=== PATIENT | female | born 1950 | race Caucasian/White ===

== ENCOUNTER 2017-01-14 06:24 | Inpatient (IN) | payer MEDICARE, OTHER ==
[~2017-01-14] VITALS: Ht 162.6 cm; Wt 66.0 kg
[~2017-01-14 06:24] MED LIST: B COTAB3 PO; TAB-TAB PO; VYTO10TA29 PO
[2017-01-15 15:23] VITALS: BP 156/84; PULSE 94; RESP 17; TEMP 97; O2SAT 95
--- NOTE | 2017-01-15 18:25 | MB ---
cc: SUMIT ROCHA MD DATE OF CONSULTATION: 01/15/2017. REASON FOR CONSULTATION: HISTORY OF PRESENT ILLNESS: This is a 66-year-old woman who was admitted to the hospital with small bowel obstruction. She was transferred from a hospital in [place], [place] where she was vacationing on a cruise. The patient had onset of severe crampy abdominal pain approximately five days ago. She was initially treated on the cruise ship and then taken to a hospital on the 13 of January. She was admitted with CT scan evidence of a significant high-grade small bowel obstruction with significant dilated small bowel and stomach. There was some ascites around the liver and in the pelvis. She was treated with nasogastric suction and IV fluids and had significant improvement within 24 hours with cessation of abdominal pain and decreased abdominal distention and resolution of abdominal tenderness. She did not have resumption of gas or stool. The patient has had previous abdominal surgery. In 2010, she has a perforation of the sigmoid colon. She has had significant diarrhea problems for most of her life and she is concerned that she may have had an inflammatory bowel disease. She underwent an emergency sigmoid resection for perforation at [facility]. She underwent a sigmoid colostomy with Julia closure of the rectum. Dr. Agatha Aj reversed her colostomy in 2011. She has had colonoscopy since that had not shown any inflammatory bowel disease. She continues to have chronic diarrhea. She states she has had one or two other episodes of small bowel obstruction within the past two years and those episodes have resolved spontaneously. PAST MEDICAL HISTORY: The patient has no other significant medical problems. She does have a history of breast cancer is currently taking a hormone blocking agent. ALLERGIES: She denies allergies. MEDICATIONS: She currently takes Losartan for hypertension. PHYSICAL EXAMINATION: GENERAL: On exam she is alert without distress. VITAL SIGNS: Vital signs are normal. Respirations are normal. SKIN: Skin is warm and dry. ABDOMEN: Her abdomen is soft and nontender without distension. RECTAL: Exam was not performed. NEUROLOGICAL EXAMINATION: Grossly normal. LABORATORY DATA: Laboratories are pending. ASSESSMENT: High-grade small bowel obstruction with significant improvement with conservative treatment while in [place]. The patient was transferred by air ambulance with an NG tube in place. PLAN: The patient will be treated with continued NG suction and IV fluids with follow up abdominal x-ray. MD JAZ Cristobal/GATO /5:56 PM /6:09 PM ROMÁN
[2017-01-15] MEDS ORDERED: ONDANSETRON HCL 4 MG/2 ML VIAL IV PUSH PRN (19:15)
[2017-01-15 20:01] VITALS: BP 135/93; PULSE 80; RESP 17; TEMP 97.4; O2SAT 95
[2017-01-15] MEDS: D5-LR + KCL 20 MEQ INJ 1,000 ML IV SCH (21:34)
[2017-01-15 21:39] LABS: AUTOMATED NEUTROPHIL # 4.9 TH/MM3 (1.8-7.7); BASOPHIL % 0.4 % (0.0-2.0); EOSINOPHIL # 0.2 TH/MM3 (0-0.4); HEMO FLAGS DIFF FINAL; LYMPH % 18.7 % (9.0-44.0); LYMPHOCYTE # 1.3 TH/MM3 (1.0-4.8); MEAN CELL VOLUME 94.8 FL (80.0-100.0); MEAN CORPUSCULAR HEMOGLOBIN 33.1 PG (27.0-34.0); MEAN CORPUSCULAR HGB CONC 34.9 % (32.0-36.0); MONO % 5.4 % (0.0-8.0); NEUT % 72.5 % (16.0-70.0); PLATELET COUNT 211 TH/MM3 (150-450); WHITE BLOOD COUNT 6.8 TH/MM3 (4.0-11.0)
[2017-01-15 21:55] LABS: ANION GAP 9 MEQ/L (5-15); AST (GOT) 16 U/L (15-37); BICARBONATE 30.5 MEQ/L (21.0-32.0); BLOOD UREA NITROGEN 8 MG/DL (7-18); CHLORIDE 101 MEQ/L (98-107); GLOMERULAR FILTRATION RATE 80 ML/MIN (>89); POTASSIUM 3.2 MEQ/L (3.5-5.1); SODIUM (NA) 140 MEQ/L (136-145)
[2017-01-15 21:56] LABS: ALT (GPT) 17 U/L (10-53)
[2017-01-15 21:58] LABS: ALKALINE PHOSPHATASE 47 U/L (45-117); TOTAL BILIRUBIN ADULT 0.4 MG/DL (0.2-1.0)
[2017-01-15] MEDS: LORazepam 2 MG/ML VIAL IV PRN (22:02)
[2017-01-15 22:46] LABS: BACTERIA, URINE FEW /hpf; BLOOD, URINE SMALL (NEG); COMMENT (UR) CULTURE INDICATED; CULTURE IF INDICATED CULTURE INDICATED; GLUCOSE,URINE NEG (NEG); KETONE, URINE 80 mg/dL (NEG); MUCUS URINE FEW /lpf (OCC); NITRITE,URINE NEG (NEG); PH, URINE 6.5 (5.0-8.5); SQUAMOUS EPITHELIAL CELL URINE 38 /hpf (0-5); TRANSITIONAL EPI CELLS, URINE 1 /hpf; URINE COLOR YELLOW (YELLW/STRAW)
--- NOTE | 2017-01-15 23:44 | RADRPT ---
EXAM DATE/TIME: 01/15/2017 23:17 [facility] COMPARISON: No previous studies available for comparison. INDICATIONS : NG tube placement. MEDICAL HISTORY : None. SURGICAL HISTORY : None. ENCOUNTER: Initial ACUITY: 1 day PAIN SCORE: 0/10 LOCATION: abdomen FINDINGS: Nasogastric tube is identified and the distal tip overlies the expected location of the distal stomac h. Dilated loop of small bowel overlies mid abdomen. CONCLUSION: NG tube as above. Dilated small bowel. Ashkan Bravo MD on January 15, 2017 at 23:43 Board Certified Radiologist. This report was verified electronically.
[2017-01-15 23:48] VITALS: BP 130/83; PULSE 70; RESP 17; TEMP 96.7; O2SAT 97
--- NOTE | 2017-01-16 00:32 | HHI.HP ---
[facility] Service [facility] Primary Care Physician Jose Castaneda M.D. Admission Diagnosis Diagnoses: Travel History International Travel<30 Days: Yes Contact w/Intl Traveler <30 Da: Yes Name of Country Traveled to: [place] and [employer] Traveled to Known Affected Are: No History of Present Illness 66-year-old female with a past medical history significant for unspecified IBD, breast cancer, hypertension and hyperlipidemia presents with a small bowel obstruction. The patient was on a cruise when she developed abdominal pain and bloating on Tuesday. She has a history of previous small bowel obstruction 2 and multiple abdominal surgeries and states her symptoms were the same as previous. She was treated with pain control on her cruise ship and left the cruise on 01/13 where she was treated in [place]. The patient was transferred to [facility] [place] for further treatment of her small bowel obstruction. She denies any pain at this time. Had one episode of flatus tonight. Patient had a CT scan which showed a significant high-grade small bowel obstruction with dilated small bowel and stomach. She was treated with NG suction and IV fluids and has had significant improvement of her symptoms over the past 48 hours. Review of Systems Denies fever or chills Denies blurry vision, otorrhea, rhinorrhea Denies sore throat and cough No chest pain, palpitations, shortness of breath No abdominal pain Denies constipation/diarrhea/nausea/vomiting Denies muscle pain/weakness No rashes Past Family Social History Past Medical History Unspecified IPD Breast cancer, status post lumpectomy and radiation treatment this year Hypertension Hyperlipidemia Past Surgical History Partial colectomy with colostomy for IBD Ostomy takedown Hernia repair Appendectomy Tonsillectomy Right ankle surgery BTL Lumpectomy Reported Medications Reported Meds & Active Scripts Active Reported B Complex (Vitamin B Complex) Tab 1 Cap PO DAILY Multivitamin (Multivitamins) 1 Tab Tab 1 Tab PO DAILY Vytorin 10/10 (Ezetimibe/Simvastatin) 10 Mg-10 Mg Tab 1 Tab PO DAILY Allergies: Coded Allergies: No Known Allergies (Unverified , 02/23/11) Family History No family history of coronary artery disease or diabetes mellitus Social History Quit tobacco 17 years ago. Drinks 6 ounces of alcohol per night. Denies illicit drugs. Physical Exam Vital Signs Vital Signs Date Time Temp Pulse Resp B/P (MAP) Pulse Ox O2 Delivery O2 Flow Rate FiO2 01/15/17 23:48 96.7 70 17 130/83 (99) 97 01/15/17 20:01 97.4 80 17 135/93 (107) 95 01/15/17 15:23 97.0 94 17 156/84 (108) 95 Physical Exam GENERAL: female lying in bed SKIN: No rashes, ecchymoses or lesions. Cool and dry. HEAD: Atraumatic. Normocephalic. No temporal or scalp tenderness. EYES: Pupils equal round and reactive. Extraocular motions intact. No scleral icterus. No injection or drainage. ENT: Nose without bleeding, purulent drainage or septal hematoma. Throat without erythema, tonsillar hypertrophy or exudate. Uvula midline. Airway patent. NECK: Trachea midline. No JVD or lymphadenopathy. Supple, nontender, no meningeal signs. CARDIOVASCULAR: Regular rate and rhythm without murmurs, gallops, or rubs. RESPIRATORY: Clear to auscultation. Breath sounds equal bilaterally. No wheezes , rales, or rhonchi. GASTROINTESTINAL: Abdomen soft, non-tender, nondistended. No hepato-splenomegaly , or palpable masses. No guarding. Active bowel sounds. MUSCULOSKELETAL: Extremities without clubbing, cyanosis, or edema. No joint tenderness, effusion, or edema noted. No calf tenderness. NEUROLOGICAL: Awake and alert. Cranial nerves II through XII intact. Motor and sensory grossly within normal limits. Normal speech. Laboratory Laboratory Tests Test 01/15/17 21:12 01/15/17 22:25 White Blood Count 6.8 Red Blood Count 3.70 Hemoglobin 12.2 Hematocrit 35.0 Mean Corpuscular Volume 94.8 Mean Corpuscular Hemoglobin 33.1 Mean Corpuscular Hemoglobin Concent 34.9 Red Cell Distribution Width 13.0 Platelet Count 211 Mean Platelet Volume 8.0 Neutrophils (%) (Auto) 72.5 Lymphocytes (%) (Auto) 18.7 Monocytes (%) (Auto) 5.4 Eosinophils (%) (Auto) 3.0 Basophils (%) (Auto) 0.4 Neutrophils # (Auto) 4.9 Lymphocytes # (Auto) 1.3 Monocytes # (Auto) 0.4 Eosinophils # (Auto) 0.2 Basophils # (Auto) 0.0 CBC Comment DIFF FINAL Differential Comment Blood Urea Nitrogen 8 Creatinine 0.73 Random Glucose 91 Total Protein 7.3 Albumin 3.6 Calcium Level 9.1 Alkaline Phosphatase 47 Aspartate Amino Transf (AST/SGOT) 16 Alanine Aminotransferase (ALT/SGPT) 17 Total Bilirubin 0.4 Sodium Level 140 Potassium Level 3.2 Chloride Level 101 Carbon Dioxide Level 30.5 Anion Gap 9 Estimat Glomerular Filtration Rate 80 Urine Color YELLOW Urine Turbidity HAZY Urine pH 6.5 Urine Specific Everest 1.023 Urine Protein 30 Urine Glucose (UA) NEG Urine Ketones 80 Urine Occult Blood SMALL Urine Nitrite NEG Urine Bilirubin NEG Urine Urobilinogen 2.0 Urine Leukocyte Esterase LARGE Urine RBC 10 Urine WBC 22 Urine Squamous Epithelial Cells 38 Urine Transitional Epithelial Cells 1 Urine Bacteria FEW Urine Mucus FEW Microscopic Urinalysis Comment CULTURE INDICATED Date/Time Source Procedure Growth Status 01/15/17 22:25 Urine Random Urine Urine Culture Pending Received Result Diagram: 01/15/17211101/15/172111 Caprini VTE Risk Assessment Caprini VTE Risk Assessment: Mod/High Risk (score >= 2) Caprini Risk Assessment Model Point Value = 1 Point Value = 2 Point Value = 3 Point Value = 5 Age 41-60 Minor surgery BMI > 25 kg/m2 Swollen legs Varicose veins or History of unexplained or recurrent spontaneous Oral contraceptives or hormone replacement Sepsis (< 1 month) Serious lung disease, including pneumonia (< 1 month) Abnormal pulmonary function Acute myocardial infarction Congestive heart failure (< 1 month) History of inflammatory bowel disease Medical patient at bed rest Age 61-74 Arthroscopic surgery Major open surgery (> 45 min) Laparoscopic surgery (> 45 min) Malignancy Confined to bed (> 72 hours) Immobilizing plaster cast Central venous access Age >= 75 History of VTE Family history of VTE Factor V Leiden Prothrombin [id number] Lupus anticoagulant Anticardiolipin antibodies Elevated serum homocysteine Heparin-induced thrombocytopenia Other congenital or acquired thrombophilia Stroke (< 1 month) Elective arthroplasty Hip, pelvis, or leg fracture Acute spinal cord injury (< 1 month) Prophylaxis Regimen Total Risk Factor Score Risk Level Prophylaxis Regimen 0-1 Low Early ambulation 2 Moderate Order ONE of the following: *Sequential Compression Device (SCD) *Heparin 5000 units SQ BID 3-4 Higher Order ONE of the following medications: *Heparin 5000 units SQ TID *Enoxaparin/Lovenox 40 mg SQ daily (WT < 150 kg, CrCl > 30 mL/min) *Enoxaparin/Lovenox 30 mg SQ daily (WT < 150 kg, CrCl > 10-29 mL/min) *Enoxaparin/Lovenox 30 mg SQ BID (WT < 150 kg, CrCl > 30 mL/min) AND/OR *Sequential Compression Device (SCD) 5 or more Highest Order ONE of the following medications: *Heparin 5000 units SQ TID (Preferred with Epidurals) *Enoxaparin/Lovenox 40 mg SQ daily (WT < 150 kg, CrCl > 30 mL/min) *Enoxaparin/Lovenox 30 mg SQ daily (WT < 150 kg, CrCl > 10-29 mL/min) *Enoxaparin/Lovenox 30 mg SQ BID (WT < 150 kg, CrCl > 30 mL/min) AND *Sequential Compression Device (SCD) Assessment and Plan Assessment and Plan Assessment/plan: 1. High-grade small bowel obstruction Abdominal x-ray with dilated small bowel, images reviewed by me Colorectal surgery recommends medical management, appreciate assistance NG tube to low intermittent wall suction Nothing by mouth Repeat abdominal x-ray in the morning 2. Hypertension/hyperlipidemia Holding home medications as patient nothing by mouth 3. IBD Patient does not take any home medications 4. Hypokalemia Supplement with IV potassium Follow-up BMP FEN NPO D5 1/2 NS + 20 KCl SCDs Physician Certification 2 Midnight Certification Type: Admission for Inpatient Services Order for Inpatient Services The services are ordered in accordance with Medicare regulations or non- Medicare payer requirements, as applicable. In the case of services not specified as inpatient-only, they are appropriately provided as inpatient services in accordance with the 2-midnight benchmark. Estimated LOS (days): 2 2 days is the estimated time the patient will need to remain in the hospital, assuming treatment plan goals are met and no additional complications. Post-Hospital Plan: Not yet determined Ximena Rebolledo MD Jan 16, 2017 00:32
[2017-01-16] MEDS: POTASSIUM CHLOR 10 MEQ PREMIX 100 ML IV SCH ×4 (01:00→05:48)
--- NOTE | 2017-01-16 06:20 | RADRPT ---
EXAM DATE/TIME: 01/16/2017 06:04 [facility] COMPARISON: ABDOMEN SINGLE VIEW, January 15, 2017, 23:17. INDICATIONS : Obstruction. MEDICAL HISTORY : None. SURGICAL HISTORY : None. ENCOUNTER: Initial ACUITY: 1 day PAIN SCORE: 0/10 LOCATION: abdomen FINDINGS: There are dilated loops of small bowel seen with multiple thickening overlying the midabdomen, measur ing up to 5 cm. There surgical clips in the right lower quadrant. There is dense stool in the ascendi ng colon. NG tube is present in satisfactory position. CONCLUSION: Dilated small bowel loops would suggest at least partial small bowel obstruction given the degree of distention. Ashkan Bravo MD on January 16, 2017 at 6:18 Board Certified Radiologist. This report was verified electronically.
[2017-01-16 08:00] VITALS: BP 139/83; PULSE 80; RESP 16; TEMP 97.8; O2SAT 94
[2017-01-16 08:49] LABS: BICARBONATE 29.4 MEQ/L (21.0-32.0); POTASSIUM 3.9 MEQ/L (3.5-5.1)
[2017-01-16] MEDS: D5-LR + KCL 20 MEQ INJ 1,000 ML IV SCH ×2 (09:55→17:01)
[2017-01-16] MEDS: LOSARTAN 25 MG TAB PO SCH (09:55)
[2017-01-16 12:00] VITALS: BP 147/90; PULSE 77; RESP 17; TEMP 96.7; O2SAT 96
[2017-01-16] MEDS ORDERED: ANAS1TAB PO (12:03)
[2017-01-16] MEDS ORDERED: ROSU1TAB6 PO (12:03)
[2017-01-16] MEDS: SULFAMETHOXAZOLE-TRIMETHOPRIM 800-160 MG/20 ML UDC PO SCH ×2 (13:20→23:25)
[2017-01-16 16:00] VITALS: BP 115/64; PULSE 96; RESP 18; TEMP 98.3; O2SAT 98
[2017-01-16 20:14] VITALS: BP 115/73; PULSE 79; RESP 18; TEMP 98.7; O2SAT 97
[2017-01-16] MEDS: LORazepam 2 MG/ML VIAL IV PRN (20:42)
[2017-01-17 00:20] VITALS: BP 122/85; PULSE 72; RESP 18; TEMP 96.8; O2SAT 94
[2017-01-17] MEDS: D5-LR + KCL 20 MEQ INJ 1,000 ML IV SCH ×2 (05:43→17:58)
[2017-01-17 08:00] VITALS: BP 120/78; PULSE 74; RESP 16; TEMP 98; O2SAT 93
[2017-01-17] MEDS: LOSARTAN 25 MG TAB PO SCH (10:09)
[2017-01-17 12:00] VITALS: BP 141/83; PULSE 85; RESP 18; TEMP 97.9; O2SAT 93
--- NOTE | 2017-01-17 12:55 | HHI.PR ---
Subjective Remarks Resolving SBO more comfortable, less bloated, small amount of flatus Objective Vital Signs Date Time Temp Pulse Resp B/P (MAP) Pulse Ox O2 Delivery O2 Flow Rate FiO2 01/17/17 12:00 97.9 85 18 141/83 (102) 93 01/17/17 08:00 98.0 74 16 120/78 (92) 93 01/17/17 00:20 96.8 72 18 122/85 (97) 94 01/16/17 20:14 98.7 79 18 115/73 (87) 97 01/16/17 16:00 98.3 96 18 115/64 (81) 98 I/O 01/16/17 01/16/17 01/16/17 01/17/17 01/17/17 01/17/17 07:00 15:00 23:00 07:00 15:00 23:00 Intake Total 200 ml 100 ml 960 ml 1760 ml Output Total 900 ml 1750 ml Balance -700 ml 100 ml -790 ml 1760 ml Intake Oral 960 ml 760 ml IV Total 200 ml 100 ml 1000 ml Output Urine Total 700 ml 1000 ml Gastric Drainage Total 200 ml 750 ml # Voids 4 # Bowel Movements 0 Result Diagram: 01/15/17211101/16/17 0714 Objective Remarks Abdomen soft, nondistended, nontender Assessment and Plan Assessment and Plan Try low residue diet Possible suppository in am Agatha Aj MD Jan 17, 2017 12:55
[2017-01-17] MEDS: SULFAMETHOXAZOLE-TRIMETHOPRIM 800-160 MG/20 ML UDC PO SCH (13:33)
[2017-01-17 16:00] VITALS: BP 140/77; PULSE 79; RESP 16; TEMP 97.7; O2SAT 94
[2017-01-17 20:00] VITALS: BP 135/81; PULSE 82; RESP 16; TEMP 98.7; O2SAT 96
[2017-01-17] MEDS: LORazepam 2 MG/ML VIAL IV PRN (21:32)
[2017-01-18] VITALS: BP 121/75; PULSE 75; RESP 16; TEMP 98.4; O2SAT 96
[2017-01-18] MEDS: SULFAMETHOXAZOLE-TRIMETHOPRIM 800-160 MG/20 ML UDC PO SCH ×3 (00:35→13:19)
[2017-01-18] MEDS: D5-LR + KCL 20 MEQ INJ 1,000 ML IV SCH ×3 (05:10→19:46)
[2017-01-18 08:20] VITALS: BP 129/77; PULSE 78; RESP 16; TEMP 97.3; O2SAT 95
[2017-01-18] MEDS: LOSARTAN 25 MG TAB PO SCH (08:47)
[2017-01-18 12:00] VITALS: BP 147/82; PULSE 85; RESP 16; TEMP 97.8; O2SAT 94
--- NOTE | 2017-01-18 14:09 | HHI.PR ---
Subjective Remarks Resolving SBO lots of cramping overnight passing flatus but no stool Objective Vital Signs Date Time Temp Pulse Resp B/P (MAP) Pulse Ox O2 Delivery O2 Flow Rate FiO2 01/18/17 12:00 97.8 85 16 147/82 (103) 94 01/18/17 08:20 97.3 78 16 129/77 (94) 95 01/18/17 00:00 98.4 75 16 121/75 (90) 96 01/17/17 20:00 98.7 82 16 135/81 (99) 96 01/17/17 16:00 97.7 79 16 140/77 (98) 94 I/O 01/17/17 01/17/17 01/17/17 01/18/17 01/18/17 01/18/17 07:00 15:00 23:00 07:00 15:00 23:00 Intake Total 1760 ml 580 ml 1000 ml Balance 1760 ml 580 ml 1000 ml Intake Oral 760 ml 580 ml IV Total 1000 ml 1000 ml # Voids 4 5 2 # Bowel Movements 0 Result Diagram: 01/15/17211101/16/17 0714 Objective Remarks Abdomen soft, moderate distension, nontender Assessment and Plan Assessment and Plan Try suppository KUB in am If no improvement, may need exjerricap Agatha Aj MD Jan 18, 2017 14:08
[2017-01-18] MEDS ORDERED: BISACODYL 10 MG SUPP RECTAL PRN (14:15)
[2017-01-18] MEDS ORDERED: traMADol HCL 50 MG TAB PO PRN (14:15)
[2017-01-18 16:00] VITALS: BP 141/76; PULSE 85; RESP 16; TEMP 98.7; O2SAT 94
[2017-01-18 20:00] VITALS: BP 140/79; PULSE 80; RESP 16; TEMP 98.3; O2SAT 95
[2017-01-18] MEDS: LORazepam 2 MG/ML VIAL IV PRN (20:53)
[2017-01-19] VITALS: BP 121/67; PULSE 80; RESP 16; TEMP 97.1; O2SAT 96
[2017-01-19] MEDS: SULFAMETHOXAZOLE-TRIMETHOPRIM 800-160 MG/20 ML UDC PO SCH (01:19)
--- NOTE | 2017-01-19 05:47 | RADRPT ---
EXAM DATE/TIME: 01/19/2017 05:10 [facility] COMPARISON: No previous studies available for comparison. INDICATIONS : Distention. MEDICAL HISTORY : Hypertension. Carcinoma, breast. Hyperlipidemia. SURGICAL HISTORY : Appendectomy. Hernia repair. Partial colectomy with colostomy. Lumpectomy. ENCOUNTER: Subsequent ACUITY: 4 - 6 days PAIN SCORE: Non-responsive. LOCATION: abdomen, all quadrants. FINDINGS: No dilated loops of small or large bowel. Visualized left lung is clear. Faint contrast in the righ t colon. No suspicious calcifications. Multiple metallic patient weight 70 pelvis from presumed her fernando repair. Moderate degenerative changes in lower lumbar spine and both hips. CONCLUSION: No dilated loops of small or large bowel. Nura Smith MD on January 19, 2017 at 5:44 Board Certified Radiologist. This report was verified electronically.
[2017-01-19 08:00] VITALS: BP 116/62; PULSE 75; RESP 16; TEMP 97.1; O2SAT 93
--- NOTE | 2017-01-19 08:22 | HHI.PR ---
Subjective Remarks Resolving SBO No stool, but some flatus Feels well, no bloating Objective Vital Signs Date Time Temp Pulse Resp B/P (MAP) Pulse Ox O2 Delivery O2 Flow Rate FiO2 01/19/17 00:00 97.1 80 16 121/67 (85) 96 01/18/17 20:00 98.3 80 16 140/79 (99) 95 01/18/17 16:00 98.7 85 16 141/76 (97) 94 01/18/17 12:00 97.8 85 16 147/82 (103) 94 I/O 01/18/17 01/18/17 01/18/17 01/19/17 01/19/17 01/19/17 07:00 15:00 23:00 07:00 15:00 23:00 Intake Total 1000 ml 2716 ml Balance 1000 ml 2716 ml Intake Oral 720 ml IV Total 1000 ml 1996 ml # Voids 2 4 1 # Bowel Movements 0 Result Diagram: 01/15/17 21101/16/17 0714 Objective Remarks Abdomen soft, no distension, nontender Assessment and Plan Assessment and Plan KUB without dilated bowel OK for discharge Light diet, continue suppository and MiraLax Followup with me next week Agatha Aj MD Jan 19, 2017 08:22
[2017-01-19] MEDS ORDERED: BISA10R RECTAL (08:24)
--- NOTE | 2017-01-19 09:04 | MD ---
cc: AGATHA AJ M.D. ADMISSION DATE: 01/15/2017 DISCHARGE DATE: 01/19/2017 [place] Visit Search.Discharge Date ADMISSION DIAGNOSIS Small bowel obstruction. DISCHARGE DIAGNOSIS Small bowel obstruction. PROCEDURE None. BRIEF HISTORY/HOSPITAL COURSE The patient is a 66-year-old lady who is several years out from a robotic colonic resection who was actually in [place] when she began having symptoms of bowel obstruction. She was eventually transferred back to [place] by [facility]. She was treated nonoperatively with gradual resolution of her symptoms and x-ray on the day of discharge shows no sign of dilated small or large bowel. I will see her in the office one week from discharge. Agatha Aj MD KW/BT /8:26 AM /8:42 AM
[2017-01-19] MEDS: LOSARTAN 25 MG TAB PO SCH (09:09)
== END 2017-01-19 10:52 | disposition home or self-care (01) | DRG 389 ==
LOC: N07B 01-15 18:23
PROVIDERS: ADMIT Colon & Rectal Surgery; ATTEND Colon & Rectal Surgery
DX: K56.609 Unspecified intestinal obstruction, unspecified as to partial versus complete obstruction (principal); R18.8 Other ascites; I10 Essential (primary) hypertension; E87.6 Hypokalemia; Z85.3 Personal history of malignant neoplasm of breast; Z92.3 Personal history of irradiation; E78.5 Hyperlipidemia, unspecified; Z87.891 Personal history of nicotine dependence
CPT/HCPCS: 74000; 74020; 80048; 80053; 81001; 85025; 87086; J2060; J2405; J3480

== ENCOUNTER 2017-01-22 02:08 | Inpatient (IN) | payer MEDICARE, OTHER ==
[~2017-01-22] VITALS: Ht 162.6 cm; Wt 65.5 kg
[2017-01-22] VITALS (9 sets, daily range): BP systolic 124–191; BP diastolic 71–92; PULSE 80–112; RESP 16–20; TEMP 96.3–98.4; O2SAT 96–99
[~2017-01-22 02:08] MED LIST changes: +ANAS1TAB PO; -B COTAB3 PO; +BISA10R RECTAL; +ROSU1TAB6 PO; -TAB-TAB PO
[2017-01-22] MEDS ORDERED: LOSA25TA PO (02:29)
[2017-01-22] MEDS ORDERED: SODIUM CHLOR 0.9% 1000 ML INJ 1,000 ML IV SCH (02:34)
--- NOTE | 2017-01-22 02:43 | PD ---
HPI Chief Complaint: Abdominal Pain Time Seen by Provider: 02:34 Travel History International Travel<30 days: No Contact w/Intl Traveler<30days: No Traveled to known affect area: No History of Present Illness HPI 66-year-old female presents to the emergency department by private transportation for complaint of abdominal pain abdominal distention and possible recurrent bowel obstruction. According the patient she was just released from the hospital after a 12 day stay on Tuesday evening for a recurrent bowel obstruction. Patient was managed conservatively with NG tube and fluid hydration. Patient was discharged on a soft diet and MiraLAX. Patient states she had a large bowel movement was last evacuation of stool and intestinal contents on evening but has not had a bowel movement or flatus since that time. Patient today noted some abdominal cramping but continued to follow the outpatient recommendations of fluid hydration and soft diet. This evening patient's continued to notice abdominal distention. Upon arrival to the emergency department she vomited multiple times stomach contents. No report of melena hematochezia or coffee-ground emesis. Patient has had previous partial colectomy with colostomy and colostomy revision in the past as well as herniorrhaphy. Patient has had 3 bowel obstructions in the past 2 years. Patient is under the care of colorectal surgeon Dr. Aj. Patient denies fever or chills. Patient reports since having episode of vomiting in the emergency department her discomfort is a 2-3/10 in intensity. Patient denies other concerns or complaints. PFSH Past Medical History Narrative Medical Arthritis hypertension dyslipidemia breast cancer with lumpectomy and radiation treatment chronic bowel syndrome/possible inflammatory bowel disease partial colectomy with colostomy(2010 sigmoid perforation) and colostomy revision bowel obstruction hypothyroidism appendectomy; occasional alcohol use; nursing notes reviewed Arthritis: Yes Blood Disorders: No Anxiety: Yes Cancer: Yes (breast (right)) Cardiovascular Problems: Yes High Cholesterol: Yes Endocrine: Yes Gastrointestinal Disorders: No GERD: Yes Genitourinary: No Hiatal Hernia: Yes (repaired) Hypertension: Yes Immune Disorder: No Implanted Vascular Access Dvce: No Musculoskeletal: Yes Neurologic: No Psychiatric: No Reproductive: No Respiratory: No Immunizations Current: Yes Radiation Therapy: Yes (finished 06/18/16) Thyroid Disease: Yes (treated for a thyroid lump) Tetanus Vaccination: Unknown Influenza Vaccination: No Past Surgical History Abdominal Surgery: Yes (appenectomy) Body Medical Devices: hardware right ankle Genitourinary Surgery: Yes (colostomy, hernia) Gynecologic Surgery: Yes (R lumpectomy, tubal ligation) Oral Surgery: Yes (tonsillectomy) Pacemaker: No Other Surgery: Yes (obstruction this past week) Social History Alcohol Use: Yes (occ) Tobacco Use: No Substance Use: No Allergies-Medications (Allergen,Severity, Reaction): Coded Allergies: No Known Allergies (Unverified Adverse Reaction, Unknown, 01/22/17) Reported Meds & Prescriptions Reported Meds & Active Scripts Active Reported Losartan (Losartan Potassium) 25 Mg Tab 25 Mg PO DAILY Rosuvastatin (Rosuvastatin Calcium) 10 Mg Tab 10 Mg PO HS Anastrozole 1 Mg Tab 1 Mg PO DAILY Review of Systems Except as stated in HPI: all other systems reviewed are Neg Physical Exam Narrative GENERAL: Well-developed well-nourished female in no acute distress no respiratory distress SKIN: Warm and dry. HEAD: Normocephalic. EYES: No scleral icterus. No injection or drainage. NECK: Supple, trachea midline. No JVD or lymphadenopathy. CARDIOVASCULAR: Increased Regular rate and rhythm without murmurs, gallops, or rubs. RESPIRATORY: Breath sounds equal bilaterally. No accessory muscle use. GASTROINTESTINAL: Abdomen soft, non-tender, nondistended. Decreased bowel sounds no guarding or rebound. MUSCULOSKELETAL: No cyanosis, or edema. BACK: Nontender without obvious deformity. No CVA tenderness. Data Data Last Documented VS Vital Signs Date Time Temp Pulse Resp B/P (MAP) Pulse Ox O2 Delivery O2 Flow Rate FiO2 01/22/17 03:09 93 16 191/79 (116) 98 Room Air 01/22/17 02:11 98.2 Orders Orders Complete Blood Count With Diff (01/22/17 02:34) Comprehensive Metabolic Panel (01/22/17 02:34) Lipase (01/22/17 02:34) Urinalysis - C+S If Indicated (01/22/17 02:34) Iv Access Insert/Monitor (01/22/17 02:34) Ecg Monitoring (01/22/17 02:34) Oximetry (01/22/17 02:34) Ondansetron Inj (Zofran Inj) (01/22/17 02:45) Sodium Chlor 0.9% 1000 Ml Inj (Ns 1000 M (01/22/17 02:34) Sodium Chloride 0.9% Flush (Ns Flush) (01/22/17 02:45) Abdomen, Upright Only (01/22/17 02:34) Morphine Inj (Morphine Inj) (01/22/17 03:15) Urine Culture (01/22/17 04:10) Ng Gastric Tube Insert/Monitor (01/22/17 04:52) Place Ng Tube To Low Intermit (01/22/17 04:52) Admit Order (Ed Use Only) (01/22/17 ) Dining Service Supervisor / Telemetry [id number] (01/22/17 04:53) Diet Npo (01/22/17 Breakfast) Activity Oob With Assistance (01/22/17 04:53) Notify Dr: Other (01/22/17 04:53) Labs Laboratory Tests Test 01/22/17 02:51 01/22/17 04:10 White Blood Count 10.6 TH/MM3 Red Blood Count 4.69 MIL/MM3 Hemoglobin 15.8 GM/DL Hematocrit 44.7 % Mean Corpuscular Volume 95.4 FL Mean Corpuscular Hemoglobin 33.8 PG Mean Corpuscular Hemoglobin Concent 35.4 % Red Cell Distribution Width 13.0 % Platelet Count 446 TH/MM3 Mean Platelet Volume 8.2 FL Neutrophils (%) (Auto) 74.1 % Lymphocytes (%) (Auto) 17.3 % Monocytes (%) (Auto) 6.1 % Eosinophils (%) (Auto) 1.9 % Basophils (%) (Auto) 0.6 % Neutrophils # (Auto) 7.8 TH/MM3 Lymphocytes # (Auto) 1.8 TH/MM3 Monocytes # (Auto) 0.6 TH/MM3 Eosinophils # (Auto) 0.2 TH/MM3 Basophils # (Auto) 0.1 TH/MM3 CBC Comment DIFF FINAL Differential Comment Blood Urea Nitrogen 23 MG/DL Creatinine 1.21 MG/DL Random Glucose 133 MG/DL Total Protein 9.1 GM/DL Albumin 4.8 GM/DL Calcium Level 10.8 MG/DL Alkaline Phosphatase 69 U/L Aspartate Amino Transf (AST/SGOT) 69 U/L Alanine Aminotransferase (ALT/SGPT) 61 U/L Total Bilirubin 0.4 MG/DL Sodium Level 134 MEQ/L Potassium Level 4.4 MEQ/L Chloride Level 99 MEQ/L Carbon Dioxide Level 27.3 MEQ/L Anion Gap 8 MEQ/L Estimat Glomerular Filtration Rate 45 ML/MIN Lipase 442 U/L Urine Color YELLOW Urine Turbidity HAZY Urine pH 5.0 Urine Specific [place] 1.018 Urine Protein 30 mg/dL Urine Glucose (UA) NEG mg/dL Urine Ketones TRACE mg/dL Urine Occult Blood TRACE Urine Nitrite NEG Urine Bilirubin NEG Urine Urobilinogen LESS THAN 2.0 MG/DL Urine Leukocyte Esterase LARGE Urine RBC 21 /hpf Urine WBC 13 /hpf Urine Squamous Epithelial Cells 5 /hpf Urine Bacteria RARE /hpf Urine Hyaline Casts 32 /lpf Urine Mucus FEW /lpf Microscopic Urinalysis Comment CULTURE INDICATED MDM Medical Decision Making Medical Screen Exam Complete: Yes Emergency Medical Condition: Yes Medical Record Reviewed: Yes Interpretation(s) Last Impressions Abdomen X-Ray 01/22/17 0234 Signed Impressions: Service Date/Time: Sunday, January 22, 2017 02:46 - CONCLUSION: Mildly distended mid abdomen small bowel loop. Air-filled distention of small bowel has decreased when compared to the prior study of 01/16/2017. Jorge Luis Kaur MD CBC & BMP Diagram 01/22/17 02:51 Total Protein 9.1 #H, Albumin 4.8, Calcium Level 10.8 H, Alkaline Phosphatase 69 , Aspartate Amino Transf (AST/SGOT) 69 H, Alanine Aminotransferase (ALT/SGPT) 61 H, Total Bilirubin 0.4 Vital Signs Date Time Temp Pulse Resp B/P (MAP) Pulse Ox O2 Delivery O2 Flow Rate FiO2 01/22/17 03:09 93 16 191/79 (116) 98 Room Air 01/22/17 02:11 98.2 112 20 132/82 (99) 97 Room Air Differential Diagnosis Recurrent bowel obstruction, ileus, diverticulitis, colitis, electrolyte disturbance, dehydration, UTI Narrative Course Patient placed on fly maker IV access obtained administered 1 L normal saline and Zofran 4 mg IV imaging study ordered along with basic labs. Medical record reviewed Sepsis Criteria SIRS Criteria (2 or more): Heart rate over 90 Physician Communication Physician Communication discussed with DR Aj --admit to her service npo /ngt Diagnosis Primary Impression: Partial small bowel obstruction Additional Impressions: Elevated lipase UTI (urinary tract infection) Admitting Information Admitting Physician Requests: Admit Ree Knutson MD Jan 22, 2017 02:43
[2017-01-22] MEDS ORDERED: ONDANSETRON HCL 4 MG/2 ML VIAL IVP ONE (02:45)
[2017-01-22] MEDS ORDERED: MORPHINE SULFATE 2 MG/ML INJ IV PUSH ONE (03:15)
[2017-01-22 03:17] LABS: AUTOMATED NEUTROPHIL # 7.8 TH/MM3 (1.8-7.7); BASOPHIL # 0.1 TH/MM3 (0-0.2); BASOPHIL % 0.6 % (0.0-2.0); EOSINOPHIL # 0.2 TH/MM3 (0-0.4); EOSINOPHIL % 1.9 % (0.0-4.0); HEMATOCRIT 44.7 % (35.0-46.0); HEMO FLAGS DIFF FINAL; LYMPH % 17.3 % (9.0-44.0); LYMPHOCYTE # 1.8 TH/MM3 (1.0-4.8); MEAN CELL VOLUME 95.4 FL (80.0-100.0); MEAN CORPUSCULAR HEMOGLOBIN 33.8 PG (27.0-34.0); MEAN CORPUSCULAR HGB CONC 35.4 % (32.0-36.0); MONO % 6.1 % (0.0-8.0); NEUT % 74.1 % (16.0-70.0); PLATELET COUNT 446 TH/MM3 (150-450); RED BLOOD COUNT 4.69 MIL/MM3 (4.00-5.30); WHITE BLOOD COUNT 10.6 TH/MM3 (4.0-11.0)
--- NOTE | 2017-01-22 03:44 | RADRPT ---
EXAM DATE/TIME: 01/22/2017 02:46 [facility] COMPARISON: ABDOMEN FLAT & UPRIGHT, January 16, 2017, 6:04. ABDOMEN KUB ONLY, January 19, 2017, 5:10. INDICATIONS : Abdomen pain. MEDICAL HISTORY : Carcinoma, breast. Obstruction. SURGICAL HISTORY : Colostomy. Inguinal hernia repair. Lumpectomy, right breast. Colectomy. ENCOUNTER: Sequela ACUITY: 1 day PAIN SCORE: 3/10 LOCATION: abdomen, center. FINDINGS: Single upright view of the abdomen. Mildly distended small bowel loop in the midabdomen with several air fluid levels. Findings are less prominent than on the comparison study of 01/16/2017. Metallic ta cks consistent with prior hernia repair surgery seen in the lower abdomen. No evidence of free air. CONCLUSION: Mildly distended mid abdomen small bowel loop. Air-filled distention of small bowel has decreased whe n compared to the prior study of 01/16/2017. Jroge Luis Kaur MD on January 22, 2017 at 3:39 Board Certified Radiologist. This report was verified electronically.
[2017-01-22 03:46] LABS: ALKALINE PHOSPHATASE 69 U/L (45-117); TOTAL BILIRUBIN ADULT 0.4 MG/DL (0.2-1.0)
[2017-01-22 04:08] LABS: ALT (GPT) 61 U/L (10-53); ANION GAP 8 MEQ/L (5-15); AST (GOT) 69 U/L (15-37); BICARBONATE 27.3 MEQ/L (21.0-32.0); BLOOD UREA NITROGEN 23 MG/DL (7-18); CHLORIDE 99 MEQ/L (98-107); GLOMERULAR FILTRATION RATE 45 ML/MIN (>89); SODIUM (NA) 134 MEQ/L (136-145)
[2017-01-22 04:09] LABS: POTASSIUM 4.4 MEQ/L (3.5-5.1)
[2017-01-22 04:42] LABS: BACTERIA, URINE RARE /hpf; BLOOD, URINE TRACE (NEG); COMMENT (UR) CULTURE INDICATED; CULTURE IF INDICATED CULTURE INDICATED; GLUCOSE,URINE NEG (NEG); HYALINE CAST, URINE 32 /lpf (RARE); KETONE, URINE TRACE mg/dL (NEG); MUCUS URINE FEW /lpf (OCC); NITRITE,URINE NEG (NEG); SQUAMOUS EPITHELIAL CELL URINE 5 /hpf (0-5); URINE COLOR YELLOW (YELLW/STRAW)
[2017-01-22] MEDS ORDERED: PIPERACIL-TAZO 3.375 GM PREMIX 50 ML IV ONE (05:00)
[2017-01-22] MEDS: SODIUM CHLORIDE 0.9% FLUSH 10 ML FLUSH IV FLUSH PRN (06:26)
[2017-01-22] MEDS: SODIUM CHLOR 0.9% 1000 ML INJ 1,000 ML IV SCH ×4 (06:26→21:19)
[2017-01-22] MEDS ORDERED: ONDANSETRON HCL 4 MG/2 ML VIAL IV PUSH PRN (10:45)
[2017-01-22] MEDS: LOSARTAN 25 MG TAB PO SCH (11:18)
[2017-01-22] MEDS ORDERED: MORPHINE SULFATE 2 MG/ML INJ IV PUSH PRN (11:30)
--- NOTE | 2017-01-22 11:34 | MH ---
cc: PADMINI CONNELL M.D. DATE OF ADMISSION: 01/22/2017 ADMITTING DIAGNOSIS: High-grade partial small bowel obstruction. HISTORY OF PRESENT ILLNESS The patient is a 66-year-old female who is few years out from a sigmoid resection for diverticulitis. She was in [place] on a cruise ship about 10-12 days ago, when she developed a bowel obstruction. She was treated in [place], and then was air lifted back to [place]. She was treated with NG suction and IV fluids and gradually resolved, and was discharged home on the . She came back to the hospital today with recurrence of nausea, vomiting and abdominal distension. She has had less pain with this episode, however. PAST MEDICAL HISTORY 1. Hypertension 2. Hyperlipidemia. 3. History of breast cancer. PAST SURGICAL HISTORY 1. Partial colectomy with colostomy, with later resection and reanastomosis of ostomy. 2. Hernia repair. 3. Appendectomy. 4. Tonsillectomy. 5. Right ankle surgery. 6. Lumpectomy. ALLERGIES None MEDICATIONS 1. Losartan 2. Vitamin supplement. 3. Anticholesterol medication. SOCIAL HISTORY The patient has a distant history of smoking and drinks 1 drink of alcohol daily. PHYSICAL EXAMINATION: GENERAL: Physical examination reveals alert female who appears comfortable. NEUROLOGIC: Neuro is grossly intact. SKIN: Skin is warm and dry. CARDIOVASCULAR: Regular rate. CHEST: Breathing is symmetric bilaterally and nonlabored. ABDOMEN: Soft, mildly distended. She is nontender. EXTREMITIES: Reveal no edema. LABORATORY FINDINGS: Reveals a white count of 10.6, hemoglobin 15.8, platelets of 446. Chemistry reveals sodium 134, potassium 4.4, chloride is 99, bicarb is 27.3, BUN is 23, creatinine is 1.21, glucose is 133. Of note, AST 69, ALT is 61 and lipase is 442. IMPRESSION High-grade partial small bowel obstruction. PLAN I had a long discussion with the patient today. I believe that with the almost a two week history of the recurrent partial small bowel obstruction, the most appropriate treatment is exploratory laparotomy with possible lysis of adhesions, possibly a bowel resection. The risks and benefits of the surgery were discussed with the patient including but not limited to bleeding, infection, injury to other organs, heart attack, stroke, pulmonary embolism, blood clot, pneumonia, need for colostomy or ileostomy, and further scar tissue, and she wishes to proceed. This will be performed tomorrow after resuscitation. Of note we did discuss the possibility that we could conceivably find some evidence of cancer in the abdomen, but this would be extremely unlikely given her history. MD ZHENG Osorio/shell /11:03 AM /11:14 AM MTDD
[2017-01-22] MEDS ORDERED: DIATRIZOATE MEGLUM/DIATRIZOATE SOD 9 ML CUP PO ONE (13:30)
[2017-01-22] MEDS ORDERED: BENZOCAINE 20% ORAL SPR 60 ML CAN OROPHARYNG PRN (14:30)
[2017-01-22] MEDS ORDERED: IOHEXOL 350 MG/ML 10 ML VIAL (for RAD DIAG) IVCONTRAST ONE (17:09)
--- NOTE | 2017-01-22 17:38 | RADRPT ---
EXAM DATE/TIME: 01/22/2017 16:54 [facility] COMPARISON: CT ABDOMEN & PELVIS W CONTRAST, January 30, 2011, 14:30. INDICATIONS : Constipation and abdominal distention for three days. IV CONTRAST: 71 cc Omnipaque 350 (iohexol) IV ORAL CONTRAST: Prescribed oral contrast ingested. RADIATION DOSE: 6.91 CTDIvol (mGy) MEDICAL HISTORY : Hypertension. Carcinoma, breast. SURGICAL HISTORY : Tubal ligation. Colostomy.hernia surgery ENCOUNTER: Initial ACUITY: 3 days PAIN SCALE: 6/10 LOCATION: Bilateral lower quadrant TECHNIQUE: Volumetric scanning of the abdomen and pelvis was performed. Using automated exposure control and ad justment of the mA and/or kV according to patient size, radiation dose was kept as low as reasonably achievable to obtain optimal diagnostic quality images. DICOM format image data is available electro nically for review and comparison. FINDINGS: Lung bases are clear. No acute findings in the spleen, adrenals, kidneys and pancreas. Right renal cy st is stable since 2000. Probable small cyst near dome of liver and exophytic lesion near the fissure measuring about 2.7 cm in diameter relatively stable since 2010. This may represent an exophytic hem angioma. The proximal small bowel is dilated and there is distal decompression. Contrast does reach the colon. Findings are most characteristic of a partial small bowel obstruction. Nasogastric tube in the stoma ch. His previous ventral hernia repair. No free fluid or free air. CONCLUSION: 1. Findings characteristic of a partial small bowel obstruction with dilated proximal small bowel loo ps and decompressed distal small bowel loops. Contrast does reach the colon. Postoperative ventral hernia repair. NG tip in stomach. Stable liver lesions and right renal lesion s darwin 2010. Davy Silva MD on January 22, 2017 at 17:31 Board Certified Radiologist. This report was verified electronically.
[2017-01-22] MEDS: ALPRAZolam 1 MG TAB PO PRN (21:18)
[2017-01-23] VITALS (15 sets, daily range): BP systolic 126–156; BP diastolic 70–82; PULSE 75–90; RESP 16–20; TEMP 96.9–98.4; O2SAT 92–100
[2017-01-23] MEDS: SODIUM CHLOR 0.9% 1000 ML INJ 1,000 ML IV SCH ×2 (05:29→22:38)
[2017-01-23] MEDS ORDERED: CHLORHEXIDINE GLUCONATE 2 % 1 PACK (2 CLOTHS) TOPICAL PRN (07:15)
[2017-01-23] MEDS ORDERED: LACTATED RINGER'S 1000 ML IV PRN (07:15)
[2017-01-23] MEDS ORDERED: POVIDONE IODINE 5% (ANTISEPSIS KIT) 4 APPLICATIONS EACH NARE PRN (07:15)
[2017-01-23] MEDS: LOSARTAN 25 MG TAB PO SCH (08:21)
[2017-01-23] MEDS ORDERED: ACETAMINOPHEN 1000 MG/100 ML 100 ML IV ONE (10:23)
--- NOTE | 2017-01-23 10:30 | EKG ---
Date Performed: 01/23/2017 Time Performed: 07:20:34 PTAGE: 66 years EKG: Sinus rhythm NORMAL ECG NO PREVIOUS TRACING DOCTOR: Vamsi Stephens Interpretating Date/Time 01/23/2017 10:28:44
[2017-01-23] MEDS ORDERED: metroNIDAZOLE 500 MG INJ 100 ML IV ONE (10:47)
[2017-01-23] MEDS ORDERED: ceFAZolin 2 GM PREMIX 50 ML ONE (10:48)
[2017-01-23] MEDS ORDERED: ROCURONIUM INJ 50 MG/5 ML SYRINGE IV PUSH ONE (12:00)
[2017-01-23] MEDS ORDERED: DEXAMETHASONE SOD PHOS 4 MG/ML VIAL IV ONE (12:00)
[2017-01-23] MEDS ORDERED: MIDAZOLAM HCL 2 MG/2 ML VIAL IV ONE (12:00)
[2017-01-23] MEDS ORDERED: PROPOFOL 200 MG/20 ML AMP IV ONE (12:00)
[2017-01-23] MEDS ORDERED: ePHEDrine/NS 25 MG/5 ML SYRINGE IV ONE (12:00)
[2017-01-23] MEDS ORDERED: PHENYLEPH/NS 1000 MCG/10 ML SYR IV ONE (12:00)
[2017-01-23] MEDS ORDERED: SUCCINYLCHOLINE CHLORIDE 100 MG/5 ML SYRINGE IV PUSH ONE (12:00)
[2017-01-23] MEDS ORDERED: GLYCOPYRROLATE 1 MG/5 ML SYRINGE IV PUSH ONE (12:00)
[2017-01-23] MEDS ORDERED: LACTATED RINGER'S 1000 ML INJ 1,000 ML IV ONE (12:00)
[2017-01-23] MEDS ORDERED: NEOSTIGMINE 5 MG/5 ML SYRINGE IV PUSH ONE (12:00)
[2017-01-23] MEDS ORDERED: MORPHINE SULFATE 4 MG/ML INJ IV ONE (12:00)
[2017-01-23] MEDS ORDERED: KETOROLAC TROMETHAMINE 30 MG/ML (IVP) VIAL IV PUSH ONE (12:00)
[2017-01-23] MEDS ORDERED: ONDANSETRON HCL 4 MG/2 ML VIAL IV PUSH ONE (12:00)
[2017-01-23] MEDS: D5-NS + KCL 20 MEQ INJ 1,000 ML IV SCH ×2 (12:48→20:46)
[2017-01-23] MEDS ORDERED: PROMETHAZINE INJ 25 MG/ML VIAL ONE (12:49)
[2017-01-23] MEDS ORDERED: *morphine SULFATE 8 MG/ML PERIprocedure ONLY ONE (12:58)
[2017-01-23] MEDS ORDERED: ENALAPRILAT 1.25 MG/ML VIAL IV PUSH PRN (13:00)
[2017-01-23] MEDS ORDERED: ENALAPRILAT 2.5 MG/2 ML VIAL IV PUSH PRN (13:00)
[2017-01-23] MEDS ORDERED: diphenhydrAMINE HCL 50 MG/ML VIAL IV PUSH PRN (13:00)
[2017-01-23] MEDS ORDERED: ACETAMINOPHEN/HYDROcodone 325 MG/5 MG TAB PO PRN (13:00)
[2017-01-23] MEDS ORDERED: ACETAMINOPHEN 325 MG TAB PO PRN (13:00)
[2017-01-23] MEDS ORDERED: NALOXONE HCL 0.4 MG/ML AMP IV PUSH PRN (13:00)
[2017-01-23] MEDS ORDERED: POTASSIUM CHLOR 40 MEQ PREMIX 100 ML IV PRN (13:00)
[2017-01-23] MEDS ORDERED: Post-op Orders (for Pharmacy) XX ONE (13:00)
[2017-01-23] MEDS ORDERED: ONDANSETRON HCL 4 MG/2 ML VIAL IV PUSH PRN (13:00)
[2017-01-23] MEDS ORDERED: MORPHINE SULFATE 30 MG/30 ML PCA IV SCH (13:00)
[2017-01-23] MEDS ORDERED: BENZOCAINE 6 MG/MENTHOL 10 MG LOZENGE BUCCAL PRN (13:00)
[2017-01-23] MEDS ORDERED: *MEPERIDINE 25 MG INJ VIAL PERIprocedural Use ONLY ONE (13:12)
[2017-01-23] MEDS ORDERED: DO NOT ADM ANY ANTICOAGULANT DRUGS PRN (13:30)
[2017-01-23] MEDS: PCA - TOTAL MG MORPHINE DELIVERED PER SHIFT SCH ×2 (14:00→21:59)
[2017-01-23] MEDS: KETOROLAC TROMETHAMINE 30 MG/ML (IVP) VIAL IVP SCH ×2 (14:43→20:42)
[2017-01-23] MEDS: PANTOPRAZOLE SODIUM 40 MG VIAL IVP SCH (14:44)
[2017-01-23 15:57] LABS: AUTOMATED NEUTROPHIL # 6.4 TH/MM3 (1.8-7.7); BASOPHIL % 0.2 % (0.0-2.0); EOSINOPHIL % 0.6 % (0.0-4.0); HEMO FLAGS DIFF FINAL; LYMPH % 6.7 % (9.0-44.0); LYMPHOCYTE # 0.5 TH/MM3 (1.0-4.8); MEAN CELL VOLUME 95.7 FL (80.0-100.0); MEAN CORPUSCULAR HEMOGLOBIN 32.3 PG (27.0-34.0); MEAN CORPUSCULAR HGB CONC 33.8 % (32.0-36.0); MONO % 2.6 % (0.0-8.0); NEUT % 89.9 % (16.0-70.0); PLATELET COUNT 327 TH/MM3 (150-450); RED BLOOD COUNT 3.87 MIL/MM3 (4.00-5.30); RED CELL DISTRIBUTION WIDTH 12.6 % (11.6-17.2); WHITE BLOOD COUNT 7.1 TH/MM3 (4.0-11.0)
[2017-01-23 16:36] LABS: BICARBONATE 27.4 MEQ/L (21.0-32.0)
--- NOTE | 2017-01-23 16:57 | MP ---
cc: PADMINI AJ M.D. DATE OF SURGERY 01/23/2017 PREOPERATIVE DIAGNOSIS High-grade partial small bowel obstruction. POSTOPERATIVE DIAGNOSIS High grade partial small bowel obstruction. PROCEDURE 1. Exploratory laparotomy. 2. Extensive lysis of adhesions. 3. Small bowel resection x2. SURGEON Padmini Aj MD ANESTHESIA General per ET tube ESTIMATED BLOOD LOSS 100 mL OPERATIVE INDICATIONS The patient is a 66-year-old female who has been in the hospital three times over the last two weeks with symptoms of partial small bowel obstruction. OPERATIVE FINDINGS The previous mesh repair, the spiral denis that were used to secure the mesh to the abdominal wall in several places had caused obstruction of the mid small bowel to the lower pelvic incision. Two pieces of bowel were inflamed enough that we did have to take out two small sections of bowel, one measuring possibly 8 cm and the other measuring possibly 4 cm. OPERATIVE COURSE The patient was brought to the operating room and placed in supine position. After induction of general anesthesia the skin of the anterior abdominal wall was prepped and draped in usual sterile fashion. After an appropriate time-out a midline incision was made beginning at the symphysis pubis and proceeding proximally to just below the umbilicus. Using electrocautery dissection was carried down to the fascia of the anterior abdominal wall. This was very slowly and painstakingly opened up carefully peeling the small bowel off of the mesh and denis. Gradually and slowly we were able to dissect it free from the undersurface of the incision and opened the incision more fully. At this point there was noted to be quite a bit of fairly significant adhesions where I had peeled it off and inflammation where I had peeled it off of the actual denis. Gradually and slowly we dissected the small bowel up and out of the pelvis and could follow it from the ileocecal valve to approximately the ligament of Treitz. There were two or three areas where she had clearly had previous bowel resections and there were some interloop adhesions but these were not significant so I elected to leave them alone. The clear area of partial ____ obstruction was at the previous mesh repair with decompressed bowel distally and dilated bowel proximally. After evaluation of the bowel I did feel that it would be prudent to remove two small sections where they had been kinked and inflamed and partially had some serosal damage from freeing them from the area of obstruction. A site was chosen proximally and distally, the mesentery was opened and a MICHI blue load was placed across this to the bowel both proximally and distally. The intervening mesentery was serially divided and ligated using 0 Vicryl ties. The antimesenteric corners of the staple line were then removed. One limb of the gastrointestinal ____ was placed on each limb of the bowel and this was along the antimesenteric border, fired and removed. At this point the bowel was noted to be somewhat thickened so I did close this with a green load of the [place] 60 stapling device. The anastomosis was palpated and found to be widely patent. Two simple stay sutures were placed at the distal end of the anastomosis using 3-0 Vicryl and the mesenteric defect was closed in running fashion using 3-0 Vicryl. A couple of areas on the staple line one was necessary to do a little suture ligature for just a small amount of bleeding. The smaller area measuring 4 cm more distally in the bowel was then removed in the same fashion and repaired in the same fashion. At this point the small bowel was returned the peritoneal cavity and attention was turned to the pelvic area were as many of the spiral denis that could be reached and could be removed were removed. At this point the small bowel was examined. The peritoneal cavity was copiously irrigated with warm normal saline. Small amounts of Surgicel powder was dusted across the anastomoses and these were returned to the peritoneal cavity trying to tuck them down into the left lower quadrant. A piece of Seprafilm was placed into the pelvis prior to putting the small bowel back in and a second piece of Seprafilm was placed across the small bowel. The fascia of the anterior abdominal wall was then closed in running fashion using looped #1 PDS. The wound was copiously irrigated with warm normal saline and the skin was closed in running subcuticular fashion using 3-0 Vicryl. Sterile dressing was then applied. All sponge, needle and sponge counts were correct and the patient was returned to the post anesthesia care unit in stable condition. MD ZHENG Osorio/MAURY /12:48 PM /4:22 PM
[2017-01-23] MEDS: metroNIDAZOLE 500 MG INJ 100 ML IV SCH (20:45)
[2017-01-23] MEDS: ALPRAZolam 1 MG TAB PO PRN (21:05)
[2017-01-24] VITALS (28 sets, daily range): BP systolic 117–146; BP diastolic 63–84; PULSE 80–95; RESP 16–18; TEMP 97.9–98.4; O2SAT 94–99
[2017-01-24] MEDS: KETOROLAC TROMETHAMINE 30 MG/ML (IVP) VIAL IVP SCH ×4 (02:08→21:11)
[2017-01-24] MEDS: metroNIDAZOLE 500 MG INJ 100 ML IV SCH ×2 (04:19→11:58)
[2017-01-24] MEDS: D5-NS + KCL 20 MEQ INJ 1,000 ML IV SCH ×3 (04:20→16:08)
[2017-01-24] MEDS: SODIUM CHLOR 0.9% 1000 ML INJ 1,000 ML IV SCH ×4 (04:21→21:30)
[2017-01-24 04:56] LABS: AUTOMATED NEUTROPHIL # 5.7 TH/MM3 (1.8-7.7); BASOPHIL % 0.1 % (0.0-2.0); EOSINOPHIL # 0.1 TH/MM3 (0-0.4); EOSINOPHIL % 1.1 % (0.0-4.0); HEMATOCRIT 33.4 % (35.0-46.0); HEMO FLAGS DIFF FINAL; LYMPH % 11.8 % (9.0-44.0); LYMPHOCYTE # 0.8 TH/MM3 (1.0-4.8); MEAN CORPUSCULAR HEMOGLOBIN 33.2 PG (27.0-34.0); MEAN CORPUSCULAR HGB CONC 34.9 % (32.0-36.0); MONO % 6.3 % (0.0-8.0); NEUT % 80.7 % (16.0-70.0); PLATELET COUNT 333 TH/MM3 (150-450); RED BLOOD COUNT 3.51 MIL/MM3 (4.00-5.30); RED CELL DISTRIBUTION WIDTH 12.9 % (11.6-17.2)
[2017-01-24 05:41] LABS: POTASSIUM 3.8 MEQ/L (3.5-5.1)
[2017-01-24] MEDS: PCA - TOTAL MG MORPHINE DELIVERED PER SHIFT SCH (05:51)
[2017-01-24] MEDS: PANTOPRAZOLE SODIUM 40 MG VIAL IVP SCH (08:44)
[2017-01-24] MEDS: LOSARTAN 25 MG TAB PO SCH (08:44)
[2017-01-24] MEDS: HEPARIN SODIUM - SQ 10,000 UNITS/ML VIAL SQ SCH (11:58)
--- NOTE | 2017-01-24 12:53 | HHI.PR ---
Subjective Remarks POD#1 s/p ex lap, sbr for psbo Morphine not working, no nausea Objective Vital Signs Date Time Temp Pulse Resp B/P (MAP) Pulse Ox O2 Delivery O2 Flow Rate FiO2 01/24/17 12:00 87 01/24/17 11:16 98.0 84 18 117/68 (84) 99 01/24/17 11:00 90 01/24/17 10:00 80 01/24/17 09:00 84 01/24/17 08:12 96 Nasal Cannula 2.00 01/24/17 08:00 86 01/24/17 07:16 97.9 86 18 142/72 (95) 97 01/24/17 07:00 80 01/24/17 06:00 83 01/24/17 05:51 18 01/24/17 05:00 82 01/24/17 04:00 82 01/24/17 03:13 16 01/24/17 03:00 82 01/24/17 03:00 98.1 85 16 133/84 (100) 96 01/24/17 02:00 80 01/24/17 01:00 82 01/24/17 00:00 84 01/23/17 23:00 86 01/23/17 23:00 98.1 86 16 129/70 (89) 96 01/23/17 23:00 96 Room Air 01/23/17 22:00 80 01/23/17 21:59 16 01/23/17 21:00 86 01/23/17 20:00 86 01/23/17 19:00 98.4 86 18 156/72 (100) 100 01/23/17 19:00 86 01/23/17 19:00 100 Nasal Cannula 2.00 01/23/17 18:00 90 01/23/17 17:00 80 01/23/17 16:14 99 Nasal Cannula 2.00 01/23/17 16:00 89 01/23/17 15:10 84 01/23/17 15:10 98.2 89 18 126/72 (90) 92 01/23/17 15:10 87 Nasal Cannula 2.00 01/23/17 14:47 81 20 142/66 (91) 99 Nasal Cannula 3 01/23/17 13:45 82 20 127/61 (83) 99 Nasal Cannula 3 01/23/17 13:30 83 20 130/62 (84) 99 Nasal Cannula 3 01/23/17 13:15 81 20 141/64 (89) 100 Nasal Cannula 3 01/23/17 13:00 74 20 144/70 (94) 100 Nasal Cannula 3 I/O 01/23/17 01/23/17 01/23/17 01/24/17 01/24/17 01/24/17 07:00 15:00 23:00 07:00 15:00 23:00 Intake Total 1520 ml 1200 ml 1450 ml 2235 ml Output Total 600 ml 800 ml 1250 ml 1450 ml Balance 920 ml 400 ml 200 ml 785 ml Intake Oral 0 ml 150 ml 720 ml IV Total 1520 ml 1200 ml 1300 ml 1515 ml Output Urine Total 700 ml 1100 ml 1100 ml Gastric Drainage Total 600 ml 150 ml 350 ml Autotransfusion 100 ml # Voids 4 # Bowel Movements 0 Result Diagram: 01/24/17 0433 01/24/17 0433 Objective Remarks Abdomen soft, nondistended, tender Dressing c/d/i Assessment and Plan Assessment and Plan Change to dilaudid continue NGT Mobilize Agatha Aj MD Jan 24, 2017 12:53
[2017-01-24] MEDS ORDERED: NALOXONE HCL 0.4 MG/ML AMP IV PUSH PRN (13:00)
[2017-01-24] MEDS: PCA - TOTAL MG DILAUDID DELIVERED PER SHIFT OTHER SCH ×2 (14:00→21:15)
[2017-01-24] MEDS: HYDROmorphone HCL PCA 6 MG/30 ML IV SCH (14:48)
[2017-01-24] MEDS: ALPRAZolam 1 MG TAB PO PRN (21:11)
[2017-01-25] VITALS (27 sets, daily range): BP systolic 126–154; BP diastolic 65–86; PULSE 80–104; RESP 17–22; TEMP 98–98.3; O2SAT 94–97
[2017-01-25] MEDS: HEPARIN SODIUM - SQ 10,000 UNITS/ML VIAL SQ SCH ×3 (00:16→23:58)
[2017-01-25] MEDS: KETOROLAC TROMETHAMINE 30 MG/ML (IVP) VIAL IVP SCH ×4 (02:01→21:26)
[2017-01-25] MEDS: D5-NS + KCL 20 MEQ INJ 1,000 ML IV SCH ×2 (02:02→15:34)
[2017-01-25] MEDS: SODIUM CHLOR 0.9% 1000 ML INJ 1,000 ML IV SCH ×3 (03:13→14:39)
[2017-01-25] MEDS: PCA - TOTAL MG DILAUDID DELIVERED PER SHIFT OTHER SCH ×3 (06:00→22:00)
[2017-01-25 06:27] LABS: AUTOMATED NEUTROPHIL # 4.9 TH/MM3 (1.8-7.7); BASOPHIL % 0.3 % (0.0-2.0); EOSINOPHIL # 0.2 TH/MM3 (0-0.4); EOSINOPHIL % 3.5 % (0.0-4.0); HEMATOCRIT 31.3 % (35.0-46.0); HEMO FLAGS DIFF FINAL; LYMPH % 14.4 % (9.0-44.0); LYMPHOCYTE # 0.9 TH/MM3 (1.0-4.8); MEAN CELL VOLUME 94.7 FL (80.0-100.0); MEAN CORPUSCULAR HEMOGLOBIN 32.9 PG (27.0-34.0); MEAN CORPUSCULAR HGB CONC 34.8 % (32.0-36.0); NEUT % 76.8 % (16.0-70.0); PLATELET COUNT 317 TH/MM3 (150-450); RED BLOOD COUNT 3.31 MIL/MM3 (4.00-5.30); RED CELL DISTRIBUTION WIDTH 12.8 % (11.6-17.2); WHITE BLOOD COUNT 6.3 TH/MM3 (4.0-11.0)
[2017-01-25 06:57] LABS: BICARBONATE 30.3 MEQ/L (21.0-32.0); POTASSIUM 3.3 MEQ/L (3.5-5.1)
[2017-01-25] MEDS: POTASSIUM CHLOR 20 MEQ PREMIX 100 ML IV PRN (08:49)
[2017-01-25] MEDS: PANTOPRAZOLE SODIUM 40 MG VIAL IVP SCH (08:50)
[2017-01-25] MEDS: LOSARTAN 25 MG TAB PO SCH (08:50)
--- NOTE | 2017-01-25 10:36 | HHI.PR ---
Subjective Remarks POD#2 s/p ex lap, sbr for psbo comfortable, wants NGT out Objective Vital Signs Date Time Temp Pulse Resp B/P (MAP) Pulse Ox O2 Delivery O2 Flow Rate FiO2 01/25/17 09:00 96 21 01/25/17 08:20 98.2 92 17 143/86 (105) 94 01/25/17 06:00 86 01/25/17 06:00 18 01/25/17 05:00 85 01/25/17 04:00 85 01/25/17 03:11 16 01/25/17 03:00 98.1 89 18 139/65 (89) 94 01/25/17 03:00 84 01/25/17 02:00 84 01/25/17 01:00 84 01/25/17 00:00 86 01/24/17 23:00 86 01/24/17 23:00 98.1 87 16 134/65 (88) 94 01/24/17 22:00 88 01/24/17 21:15 18 01/24/17 21:00 88 01/24/17 20:05 21 01/24/17 20:00 84 01/24/17 19:00 98.0 90 18 146/67 (93) 98 01/24/17 19:00 86 01/24/17 18:00 92 01/24/17 17:00 86 01/24/17 16:00 88 01/24/17 15:23 98.4 95 18 134/63 (86) 97 01/24/17 15:00 89 01/24/17 14:00 92 01/24/17 13:00 84 01/24/17 12:00 87 01/24/17 11:16 98.0 84 18 117/68 (84) 99 01/24/17 11:00 90 I/O 01/24/17 01/24/17 01/24/17 01/25/17 01/25/17 01/25/17 06:59 14:59 22:59 06:59 14:59 22:59 Intake Total 2235 ml 1298 ml 1622 ml Output Total 1450 ml 1600 ml 2000 ml Balance 785 ml -302 ml -378 ml Intake Oral 720 ml 840 ml 480 ml IV Total 1515 ml 458 ml 1142 ml Output Urine Total 1100 ml 1100 ml 1575 ml Gastric Drainage Total 350 ml 500 ml 425 ml Result Diagram: 01/25/17 0538 01/25/17 0538 Objective Remarks Abdomen soft, nondistended, tender wound clean Assessment and Plan Assessment and Plan clamp NGT, check residual in 3 hours, if less [id number], d/c NGT Mobilize Transfer to [facility] after NGT Agatha Aj MD Jan 25, 2017 10:35
[2017-01-25] MEDS: ALPRAZolam 1 MG TAB PO PRN (21:33)
[2017-01-26] VITALS (19 sets, daily range): BP systolic 119–163; BP diastolic 60–82; PULSE 71–95; RESP 16–19; TEMP 97.1–98.4; O2SAT 96–100
[2017-01-26] MEDS: KETOROLAC TROMETHAMINE 30 MG/ML (IVP) VIAL IVP SCH ×2 (02:00→08:32)
[2017-01-26] MEDS: D5-NS + KCL 20 MEQ INJ 1,000 ML IV SCH (05:41)
[2017-01-26 06:50] LABS: AUTOMATED NEUTROPHIL # 3.4 TH/MM3 (1.8-7.7); BASOPHIL % 0.3 % (0.0-2.0); EOSINOPHIL # 0.3 TH/MM3 (0-0.4); EOSINOPHIL % 5.4 % (0.0-4.0); HEMATOCRIT 31.4 % (35.0-46.0); HEMO FLAGS DIFF FINAL; LYMPH % 22.4 % (9.0-44.0); LYMPHOCYTE # 1.1 TH/MM3 (1.0-4.8); MEAN CELL VOLUME 95.2 FL (80.0-100.0); MEAN CORPUSCULAR HEMOGLOBIN 33.4 PG (27.0-34.0); MEAN CORPUSCULAR HGB CONC 35.1 % (32.0-36.0); MONO % 5.3 % (0.0-8.0); NEUT % 66.6 % (16.0-70.0); PLATELET COUNT 318 TH/MM3 (150-450); WHITE BLOOD COUNT 5.1 TH/MM3 (4.0-11.0)
[2017-01-26 07:20] LABS: BICARBONATE 30.2 MEQ/L (21.0-32.0); POTASSIUM 3.4 MEQ/L (3.5-5.1)
[2017-01-26] MEDS: SODIUM CHLOR 0.9% 1000 ML INJ 1,000 ML IV SCH ×4 (07:48→23:45)
[2017-01-26] MEDS: PANTOPRAZOLE SODIUM 40 MG VIAL IVP SCH (08:33)
[2017-01-26] MEDS: LOSARTAN 25 MG TAB PO SCH (08:33)
[2017-01-26] MEDS: POTASSIUM CHLOR 20 MEQ PREMIX 100 ML IV PRN (10:02)
[2017-01-26] MEDS: HEPARIN SODIUM - SQ 10,000 UNITS/ML VIAL SQ SCH ×2 (12:11→23:46)
--- NOTE | 2017-01-26 12:54 | HHI.PR ---
Subjective Remarks POD#3 s/p ex lap, sbr for psbo comfortable, wants to advance diet Objective Vital Signs Date Time Temp Pulse Resp B/P (MAP) Pulse Ox O2 Delivery O2 Flow Rate FiO2 01/26/17 12:00 148/66 (93) 01/26/17 12:00 76 01/26/17 11:22 98.3 81 17 100 01/26/17 11:00 75 01/26/17 10:00 84 01/26/17 09:00 88 01/26/17 08:00 76 01/26/17 07:49 98.1 77 16 133/68 (89) 96 01/26/17 07:00 75 01/26/17 06:00 74 01/26/17 05:05 77 01/26/17 04:30 98.0 71 18 122/67 (85) 98 01/26/17 04:00 71 01/26/17 03:00 75 01/26/17 02:00 74 01/26/17 01:00 74 01/26/17 00:00 76 01/26/17 00:00 98.0 81 19 119/60 (79) 97 01/25/17 23:00 82 01/25/17 22:00 84 01/25/17 22:00 18 01/25/17 21:00 80 01/25/17 20:00 98.3 83 22 126/66 (86) 97 01/25/17 20:00 82 01/25/17 19:00 86 01/25/17 19:00 83 01/25/17 18:25 103 01/25/17 17:06 104 01/25/17 16:13 88 01/25/17 15:30 98.0 88 19 148/75 (99) 96 01/25/17 15:00 90 01/25/17 14:00 92 01/25/17 14:00 18 01/25/17 13:00 94 I/O 01/25/17 01/25/17 01/25/17 01/26/17 01/26/17 01/26/17 07:00 15:00 23:00 07:00 15:00 23:00 Intake Total 1622 ml 619 ml 840 ml Output Total 2000 ml 100 ml 1000 ml Balance -378 ml 519 ml -160 ml Intake Oral 480 ml 360 ml 240 ml IV Total 1142 ml 259 ml 600 ml Output Urine Total 1575 ml 1000 ml Gastric Drainage Total 425 ml 100 ml # Voids 3 3 # Bowel Movements 1 Result Diagram: 01/26/1762101/26/17621 Objective Remarks Abdomen soft, nondistended, tender wound clean Assessment and Plan Assessment and Plan Try fulls Agatha Aj MD Jan 26, 2017 12:54
[2017-01-26] MEDS: PCA - TOTAL MG DILAUDID DELIVERED PER SHIFT OTHER SCH ×2 (14:00→21:58)
[2017-01-26] MEDS: ALPRAZolam 1 MG TAB PO PRN (21:57)
[2017-01-27] VITALS: BP 142/71; PULSE 78; RESP 17; TEMP 96.7; O2SAT 99
[2017-01-27] MEDS: HYDROmorphone HCL PCA 6 MG/30 ML IV SCH (01:08)
[2017-01-27 04:00] VITALS: BP 147/69; PULSE 73; RESP 16; TEMP 95.5; O2SAT 94
[2017-01-27] MEDS: PCA - TOTAL MG DILAUDID DELIVERED PER SHIFT OTHER SCH ×2 (05:27→20:56)
[2017-01-27] MEDS: D5-NS + KCL 20 MEQ INJ 1,000 ML IV SCH ×2 (05:28→20:57)
[2017-01-27] MEDS: SODIUM CHLOR 0.9% 1000 ML INJ 1,000 ML IV SCH ×3 (05:28→21:00)
[2017-01-27 08:00] VITALS: BP 138/77; PULSE 74; RESP 21; TEMP 97; O2SAT 95
[2017-01-27] MEDS: PANTOPRAZOLE SODIUM 40 MG VIAL IVP SCH (08:18)
[2017-01-27] MEDS: LOSARTAN 25 MG TAB PO SCH (08:18)
[2017-01-27 12:00] VITALS: BP 148/90; PULSE 84; RESP 20; TEMP 97.4; O2SAT 98
[2017-01-27] MEDS: HEPARIN SODIUM - SQ 10,000 UNITS/ML VIAL SQ SCH ×2 (12:25→23:37)
[2017-01-27 16:00] VITALS: BP 174/78; PULSE 87; RESP 20; TEMP 98.9; O2SAT 96
[2017-01-27 20:00] VITALS: BP 140/72; PULSE 82; RESP 16; TEMP 97.7; O2SAT 95
[2017-01-27] MEDS: ALPRAZolam 1 MG TAB PO PRN (20:52)
[2017-01-27] MEDS: ACETAMINOPHEN/HYDROcodone 325 MG/5 MG TAB PO PRN (20:54)
[2017-01-27] MEDS: SODIUM CHLORIDE 0.9% FLUSH 10 ML FLUSH IV FLUSH PRN (20:55)
--- NOTE | 2017-01-27 22:41 | HHI.PR ---
Subjective Remarks POD#4 s/p ex lap, sbr for psbo comfortable Objective Vital Signs Date Time Temp Pulse Resp B/P (MAP) Pulse Ox O2 Delivery O2 Flow Rate FiO2 01/27/17 20:00 97.7 82 16 140/72 (94) 95 01/27/17 16:00 98.9 87 20 174/78 (110) 96 01/27/17 12:00 97.4 84 20 148/90 (109) 98 01/27/17 08:00 97.0 74 21 138/77 (97) 95 01/27/17 05:27 16 01/27/17 04:00 95.5 73 16 147/69 (95) 94 01/27/17 01:08 18 01/27/17 00:00 96.7 78 17 142/71 (94) 99 I/O 01/26/17 01/26/17 01/26/17 01/27/17 01/27/17 01/27/17 06:59 14:59 22:59 06:59 14:59 22:59 Intake Total 840 ml 1820 ml 240 ml 600 ml 700 ml Output Total 1000 ml 1820 ml 400 ml Balance -160 ml 0 ml 240 ml 600 ml 300 ml Intake Oral 240 ml 1820 ml 240 ml 600 ml 700 ml IV Total 600 ml Output Urine Total 1000 ml 1820 ml 400 ml # Voids 3 2 1 # Bowel Movements 0 0 Result Diagram: 01/26/1762101/26/17621 Objective Remarks Abdomen soft, nondistended, tender wound clean Assessment and Plan Assessment and Plan Advance diet Agatha Aj MD Jan 27, 2017 22:41
[2017-01-28] VITALS: BP 126/72; PULSE 74; RESP 16; TEMP 96.5; O2SAT 95
[2017-01-28] MEDS: ACETAMINOPHEN/HYDROcodone 325 MG/5 MG TAB PO PRN (02:58)
[2017-01-28] MEDS: SODIUM CHLOR 0.9% 1000 ML INJ 1,000 ML IV SCH (05:32)
[2017-01-28] MEDS: PCA - TOTAL MG DILAUDID DELIVERED PER SHIFT OTHER SCH (06:00)
[2017-01-28 08:00] VITALS: BP 138/73; PULSE 66; RESP 20; TEMP 96.9; O2SAT 96
[2017-01-28] MEDS: LOSARTAN 25 MG TAB PO SCH (09:58)
[2017-01-28] MEDS: PANTOPRAZOLE SODIUM 40 MG VIAL IVP SCH (09:59)
--- NOTE | 2017-01-28 10:36 | HHI.PR ---
Subjective Remarks POD#5 s/p ex lap, sbr for psbo comfortable Objective Vital Signs Date Time Temp Pulse Resp B/P (MAP) Pulse Ox O2 Delivery O2 Flow Rate FiO2 01/28/17 08:00 96.9 66 20 138/73 (94) 96 01/28/17 00:00 96.5 74 16 126/72 (90) 95 01/27/17 20:00 97.7 82 16 140/72 (94) 95 01/27/17 16:00 98.9 87 20 174/78 (110) 96 01/27/17 12:00 97.4 84 20 148/90 (109) 98 I/O 01/27/17 01/27/17 01/27/17 01/28/17 01/28/17 01/28/17 07:00 15:00 23:00 07:00 15:00 23:00 Intake Total 240 ml 600 ml 700 ml 120 ml Output Total 400 ml Balance 240 ml 600 ml 300 ml 120 ml Intake Oral 240 ml 600 ml 700 ml 120 ml Output Urine Total 400 ml # Voids 1 2 # Bowel Movements 0 Result Diagram: 01/26/1722 01/26/17621 Objective Remarks Abdomen soft, nondistended, tender wound clean Assessment and Plan Assessment and Plan Home today Followup 3 weeks Agatha Aj MD Jan 28, 2017 10:36
[2017-01-28] MEDS ORDERED: HYDR-3516 PO (10:41)
[2017-01-28 12:00] VITALS: BP 126/83; PULSE 84; RESP 19; TEMP 97.6; O2SAT 96
--- NOTE | 2017-01-31 16:25 | MD ---
cc: PADMINI CONNELL M.D. ADMISSION DATE: 01/22/2017 DISCHARGE DATE: 01/28/2017 ADMISSION DIAGNOSIS Small bowel obstruction review hypertension. DISCHARGE DIAGNOSIS Small bowel obstruction review hypertension. PROCEDURES Exploratory laparotomy with lysis of adhesions and small bowel resection x2. HOSPITAL COURSE The patient was admitted to the hospital on January 22, 2017. This was her second admission recently for a bowel obstruction. She was taken to the operating room the next day where she underwent the above-named procedures. Postoperatively she did well with rapid return of bowel and bladder functions. DISPOSITION She was discharged to home on instructions to follow up with me in the office. MD ZHENG Osorio/RAJNI /10:26 AM /4:07 PM
== END 2017-01-28 11:56 | disposition home or self-care (01) | DRG 908 ==
LOC: NEPC 02:08 → NEDA 05:00 → N07A 06:05 → HCPC 01-23 13:36 → N07A 01-26 19:31
PROVIDERS: ADMIT Colon & Rectal Surgery; ATTEND Colon & Rectal Surgery
PROC: 0D9670Z Drainage of Stomach with Drainage Device, Via Natural or Artificial Opening (ICD-10-PCS; 2017-01-22)
PROC: 0DN80ZZ Release Small Intestine, Open Approach (ICD-10-PCS; 2017-01-23)
PROC: 0WJP0ZZ Inspection of Gastrointestinal Tract, Open Approach (ICD-10-PCS; 2017-01-23)
PROC: 0WJJ0ZZ Inspection of Pelvic Cavity, Open Approach (ICD-10-PCS; 2017-01-23)
PROC: 0WPF0JZ Removal of Synthetic Substitute from Abdominal Wall, Open Approach (ICD-10-PCS; 2017-01-23)
PROC: 3E0M05Z Introduction of Adhesion Barrier into Peritoneal Cavity, Open Approach (ICD-10-PCS; 2017-01-23)
PROC: 0DB80ZZ Excision of Small Intestine, Open Approach (ICD-10-PCS; principal; 2017-01-23 10:40)
DX: T85.698A Other mechanical complication of other specified internal prosthetic devices, implants and grafts, initial encounter (principal); K56.51 Intestinal adhesions [bands], with partial obstruction; N39.0 Urinary tract infection, site not specified; I10 Essential (primary) hypertension; R74.8 Abnormal levels of other serum enzymes; E07.9 Disorder of thyroid, unspecified; K21.9 Gastro-esophageal reflux disease without esophagitis; E78.5 Hyperlipidemia, unspecified; M19.90 Unspecified osteoarthritis, unspecified site; F41.9 Anxiety disorder, unspecified; E03.9 Hypothyroidism, unspecified; Y82.8 Other medical devices associated with adverse incidents; Y83.2 Surgical operation with anastomosis, bypass or graft as the cause of abnormal reaction of the patient, or of later complication, without mention of misadventure at the time of the procedure; Z85.3 Personal history of malignant neoplasm of breast; Z92.3 Personal history of irradiation; Z87.891 Personal history of nicotine dependence
CPT/HCPCS: 43753; 74000; 74177; 76937; 80048; 80053; 81001; 83605; 83690; 84155; 85025; 87040; 87086; 88305; 88307; 93005; 94150; 96361; 96374; 96375; C1765; C9113; J0131; J0330; J0690; J1100; J1170; J1644; J1885; J2175; J2250; J2270; J2370; J2405; J2543; J2550; J2710; J3010; J3480; J7030; J7120; Q9963; Q9967